=== PATIENT | female | born 1970 | race Asian ===

== ENCOUNTER 2021-04-03 09:19 | Outpatient (CLI) | payer OTHER, SELFPAY ==
[2021-04-03 10:00] LABS: Alanine Aminotransferase 17 U/L (4-35); Albumin Level 4.5 g/dL (3.5-5.1); Alkaline Phosphatase 46 U/L (38-126); Anion Gap 6 mmol/L (8-16); Aspartate Amino Transferase 35 U/L (14-36); Bilirubin,Total 0.5 mg/dL (0.2-1.3); Blood Urea Nitrogen 11 mg/dL (7-17); Calcium 9.8 mg/dL (8.4-10.2); Carbon Dioxide 30 mmol/L (22-30); Chloride 104 mmol/L (98-107); Cholesterol 243 mg/dL (0-200); Estimated Glomerular Filt Rate > 60; Glucose 86 mg/dL (65-110); HDL Direct 74 mg/dL; Potassium 4.1 mmol/L (3.4-5.0); Sodium 140 mmol/L (137-145); Triglycerides 68 mg/dL (<150)
[2021-04-03 10:01] LABS: Basophils Percent Auto 0.7 % (0.2-1.2); Eosinophils Absolute Auto 0.3 K/mm3 (0-0.3); Eosinophils Percent Auto 7.2 % (0-4.4); Hematocrit 41.5 % (37.0-47.0); Hemoglobin 13.7 g/dL (12.0-15.0); Immature Granulocyte Absolute 0.01 K/mm3 (0.00-0.031); Immature Granulocyte Percent A 0.2 % (0-0.5); Lymphocytes Absolute Auto 1.59 K/mm3 (0.9-3.2); Lymphocytes Percent Auto 37.1 % (18.3-44.2); Mean Corpuscular Hemoglobin 29.8 pg (26-34); Mean Corpuscular Volume 90.4 fl (80-100); Mean Platelet Volume 9.3 fl (7.4-10.4); Monocytes Absolute Auto 0.4 K/mm3 (0.1-0.6); Monocytes Percent Auto 8.6 % (2.6-8.5); Neutrophils Percent Auto 46.2 % (45.5-73.1); Platelet Count Result 250 k/mm3 (150-375); Red Blood Count 4.59 M/mm3 (4.2-5.4); Red Cell Distribution Width 13.9 % (11.5-14.5); White Blood Count 4.3 K/mm3 (4.5-10.0)
[2021-04-03 10:12] LABS: LDL Cholesterol Direct 127 mg/dL
== END 2021-04-03 09:20 | disposition home or self-care (01) ==
PROVIDERS: PCP Family Medicine; Visit Provider Nurse Practitioner
DX: E78.5 Hyperlipidemia, unspecified (principal)
CPT/HCPCS: 36415; 80053; 80061; 85025

== ENCOUNTER 2021-04-24 08:38 | Outpatient (CLI) | payer OTHER, SELFPAY ==
[2021-04-28 17:29] LABS: HIV DNA PCR (Qual) Not Detected (Not Detected)
== END 2021-04-24 08:39 | disposition home or self-care (01) ==
LOC: ANHLAB 08:39
PROVIDERS: PCP Family Medicine; Visit Provider Nurse Practitioner
DX: Z11.3 Encounter for screening for infections with a predominantly sexual mode of transmission (principal); Z12.4 Encounter for screening for malignant neoplasm of cervix
CPT/HCPCS: 36415; 87535

== ENCOUNTER 2021-06-18 08:55 | Outpatient (CLI) | payer OTHER, SELFPAY ==
--- NOTE | ~2021-06-18 | MM_ITS ---
EXAMINATION: MM screening [facility] BI w [place] HISTORY: Screening TECHNIQUE: Craniocaudal and mediolateral oblique 3-D tomosynthesis images were obtained and synthetic 2-D images were generated. CAD analysis was submitted and interpreted. COMPARISON: Comparison to multiple prior studies sequentially, with oldest reviewed study dated 11/15. BREAST PARENCHYMAL COMPOSITION: Breast composed of scattered areas of fibroglandular density FINDINGS: There is a new cluster of calcifications in the lower outer quadrant of the left breast, mi ddle third. The right breast is stable without evidence for malignancy. IMPRESSION: 1. New cluster of indeterminate left breast calcifications, lower outer quadrant. 2. Magnification views are recommended. BI-RADS Category 0: Incomplete: Needs additional imaging evaluation. Reviewed, dictated and finalized at location A. ICATOR IMPRESSION: 1. New cluster of indeterminate left breast calcifications, lower outer quadran t. 2. Magnification views are recommended. BI-RADS Category 0: Incomplete: Needs additional imaging evaluation.
== END 2021-06-18 08:56 | disposition home or self-care (01) ==
PROVIDERS: PCP Family Medicine; Visit Provider Obstetrics & Gynecology
DX: Z12.31 Encounter for screening mammogram for malignant neoplasm of breast (principal); R92.8 Other abnormal and inconclusive findings on diagnostic imaging of breast
CPT/HCPCS: 77063; 77067

== ENCOUNTER 2021-06-19 10:00 | Outpatient (RCR) | payer OTHER, SELFPAY ==
--- NOTE | 2021-05-22 13:53 | PTOPEVAL ---
PHYSICAL THERAPY EVALUATION Thank you for referring Angelina Iglesias to [facility].? Angelina was evaluated for the dx of right elbow epicondylitis. The patient is scheduled to be seen for therapy?2 x/week for 4 weeks. Please review, sign, date and return this plan of care [place]. I agree with and certify that the following plan of care is medically necessary. Referring Physician Date Attending Provider: Saray Garcia NP *PT Outpatient Evaluation Start: 05/22/21 12:35 Freq: Status: Active Protocol: Document 05/22/21 12:35 [facility] (Rec: 05/22/21 13:28 MLV [id number]) Therapy Assessment Status Assessment Status Assessment Status Evaluation Evaluation Information Problem Diagnosis right elbow tendonitis Onset 2019 Cause overuse Additional Evaluation Detail The patient reports starting playing tennis this last summer and then began having pain at her forearm and difficulty gripping/lifting. The pt is right hand dominant. The patient works, using a computer all day, and plays games online with the computer. The patient swims 1-2 x a week regularly. The patient was given steroids that helped while on it but came back when it is done. 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
--- NOTE | 2021-06-19 10:23 | PTOPEVAL ---
PHYSICAL THERAPY DISCHARGE NOTE Thank you for referring Angelina Iglesais to [facility].? Please review, sign, date and return this plan of care [place]. I agree with and certify that the following plan of care is medically necessary. Referring Physician Date Attending Provider: Saray Garcia, CUTTING AND SPLICING SUPERVISOR Discharge Diagnosis right elbow tendonitis Onset 2019 Cause overuse Subjective Information feeling like she is doing Query Text:As Reported By Patient/ better and that she can use Family her right arm better. The pain is significantly reduced. Pain Assessment Timing of Pain Assessment Timing of Pain Assessment Pre-Treatment Self Report Self Report Pain Level 0 Pain Score Pain Score 0: Self Report Upper Extremity Range of Motion General Upper Extremity Range of Motion Gross Upper Extremity Range of Motion right wrist active: flexion ( Comments with elbow flexed) 88', extension 68', flexion with elbow extended 69'. Fingers/ elbow motions symmetrical and WNL's Upper Extremity Muscle Strength Testing Elbow/Forearm Bilateral Elbow Flexion Strength 5 Normal Elbow Extension Strength 5 Normal Wrist Strength Bilateral Wrist Flexion Strength 5 Normal Wrist Extension Strength 5 Normal Finger Strength Bilateral Finger Strength Comments 3 finger pinch left = 6lbs, right 7.5lbs gross inspector clip on sunglasses level 1: right 50 lbs gross inspector clip on sunglasses level 3: right 51 lbs with some pain Palpation Assessment Palpation Palpation no tenderness noted through wrist extensors General Exercises Side Right Exercise Description - bent over tricep kickback Query Text:Record Sets, Reps, with #4 dumbbell [id number] cues Resistance, and Position for mechanics and stabilization - standing shoulder flexion to 90degrees with #4 [id number] cues for posture - standing shoulder scaption # 4 [id number] - standing full bicep curl with #4 [id number], hammer curl with #4 [id number] - UE bike for push-pull x2min Rehab Teaching Rehab Teaching Teaching Topic Rehab Teaching Topic Components Bod
== END 2021-06-19 16:46 | disposition home or self-care (01) ==
LOC: ANHPT 10:00
PROVIDERS: PCP Family Medicine; Visit Provider Nurse Practitioner
DX: M25.521 Pain in right elbow (principal)
CPT/HCPCS: 97035; 97110; 97140; 97162

== ENCOUNTER 2021-06-21 10:22 | Outpatient (CLI) | payer OTHER, SELFPAY ==
--- NOTE | ~2021-06-21 | MM_ITS ---
EXAMINATION: MM diagnostic mammo unilat LT HISTORY: Follow-up left breast calcifications TECHNIQUE: Additional 3-D tomosynthesis images of the left breast were performed and synthetic 2-D im ages were generated. CAD analysis was submitted and interpreted. COMPARISON: 06/18/2021 BREAST PARENCHYMAL COMPOSITION: Breast composed of scattered areas of fibroglandular density. FINDINGS: There are punctate indeterminate left breast calcifications which are likely benign. There are no suspicious masses or architectural distortion. IMPRESSION: 1. Probable benign calcifications lower outer quadrant of the left breast anteriorly. 2. Recommend 6 month follow-up diagnostic left mammogram BI-RADS category 3, probably benign findings. Reviewed, dictated and finalized at location A. ROOM ATTENDANT IMPRESSION: 1. Probable benign calcifications lower outer quadrant of the left breast anter iorly. 2. Recommend 6 month follow-up diagnostic left mammogram BI-RADS category 3, probably benign findings.
== END 2021-06-21 10:23 | disposition home or self-care (01) ==
LOC: ANHIMG 10:22
PROVIDERS: PCP Family Medicine; Visit Provider Nurse Practitioner Family
DX: R92.8 Other abnormal and inconclusive findings on diagnostic imaging of breast (principal); R92.1 Mammographic calcification found on diagnostic imaging of breast
CPT/HCPCS: 77065

== ENCOUNTER 2022-01-24 11:54 | Outpatient (CLI) | payer OTHER, SELFPAY ==
--- NOTE | ~2022-01-24 | MM_ITS ---
EXAMINATION: MM diagnostic adis LT w [place] HISTORY: Six-month follow-up for probable benign calcifications lower outer quadrant of left breast a nteriorly TECHNIQUE: ML, MLO and CC 3-D tomosynthesis images of the left breast were performed and synthetic 2- D images were generated. Magnification views of left breast in ML, MLO and CC projections CAD analysi s was submitted and interpreted. COMPARISON: 06/21/2021 diagnostic left mammogram 06/18/2021 bilateral screening mammogram BREAST PARENCHYMAL COMPOSITION: The breasts are heterogeneously dense, which may obscure small masses . FINDINGS: Punctate subtle microcalcifications are noted anteriorly in the lower outer left breast. No linear or branching suspicious microcalcifications are noted. No suspicious osseous mass or architec tural distortion, skin thickening or retraction is evident. The heterogeneously dense stroma however may obscure masses. IMPRESSION: 1. Subtle microcalcifications anterior lower outer left breast and heterogeneously dense stroma 2. Left breast ultrasound examination is recommended BI-RADS Category 0: Incomplete: Needs additional imaging evaluation. Reviewed, dictated and finalized at location A. IMPRESSION: 1. Subtle microcalcifications anterior lower outer left breast and heterogeneou sly dense stroma 2. Left breast ultrasound examination is recommended BI-RADS Category 0: Incomplete: Needs additional imaging evaluation.
== END 2022-01-24 11:55 | disposition home or self-care (01) ==
LOC: ANHIMG 11:55
PROVIDERS: PCP Nurse Practitioner; Visit Provider Nurse Practitioner Family
DX: R92.8 Other abnormal and inconclusive findings on diagnostic imaging of breast (principal); R92.0 Mammographic microcalcification found on diagnostic imaging of breast
CPT/HCPCS: 77061; 77065; G0279

== ENCOUNTER → 2022-01-29 13:05 | Outpatient (CLI) | payer OTHER, SELFPAY ==
--- NOTE | ~2022-01-29 | US_ITS ---
US breast LT limited 01/29/2022 13:18 Indication: Left breast calcifications with dense tissue seen on prior examination. Procedure: High-resolution Limited ultrasound of the left breast Comparison: Mammogram dated 01/24/2022 Findings: Normal heterogeneous echotexture without focal solid or cystic mass. Impression: 1: No sonographic evidence for malignancy in the left breast. Left breast calcifications in the lower outer quadrant of the left breast are likely benign. BI-RADS CATEGORY 3-PROBABLY BENIGN FINDING RECOMMENDATION: Six-month follow-up diagnostic left mammogram recommended. Reviewed, dictated and finalized at location A. Impression: 1: No sonographic evidence for malignancy in the left breast. Left breast calci fications in the lower outer quadrant of the left breast are likely benign. BI-RADS CATEGORY 3-PROBABLY BENIGN FINDING RECOMMENDATION: Six-month follow-up diagnostic left mammogram recommended.
== END ==
PROVIDERS: PCP Nurse Practitioner; Visit Provider Nurse Practitioner
DX: R92.1 Mammographic calcification found on diagnostic imaging of breast (principal)
CPT/HCPCS: 76642

== ENCOUNTER 2022-10-15 13:04 | Outpatient (CLI) | payer OTHER, SELFPAY ==
--- NOTE | ~2022-10-15 | MM_ITS ---
EXAMINATION: MM diagnostic adis BI w [place] HISTORY: Six-month follow-up for probably benign left breast calcifications. TECHNIQUE: Craniocaudal, mediolateral, and mediolateral oblique 3-D tomosynthesis images of the breas ts were performed and synthetic 2-D images were generated. Magnification views of the left breast are also obtained. CAD analysis was submitted and interpreted. COMPARISON: 01/24/2022, 06/21/2021, 06/18/2021, 02/12/2018 BREAST PARENCHYMAL COMPOSITION: The breasts are heterogeneously dense, which may obscure small masses . FINDINGS: No suspicious mass, calcification, or architectural distortion are identified in either rajeev ast to suggest malignancy. There has been no suspicious interval change. Previously described left b reast calcifications are no longer evident. IMPRESSION: 1. No mammographic evidence of malignancy. 2. Recommend routine screening mammography in one year. BI-RADS Category 1: Negative Reviewed, dictated and finalized at location A.
== END 2022-10-15 13:05 | disposition home or self-care (01) ==
LOC: ANHIMG 13:05
PROVIDERS: PCP Nurse Practitioner; Visit Provider Nurse Practitioner
DX: R92.8 Other abnormal and inconclusive findings on diagnostic imaging of breast (principal)
CPT/HCPCS: 77062; 77066; G0279

== ENCOUNTER 2022-12-30 00:09 | Day surgery (SDC) | payer OTHER, SELFPAY ==
[2022-12-19 13:56] VITALS: BMI 22.0
[2022-12-30 08:27] VITALS: BP 100/65; PULSE 60; RESP 20; TEMP 36.6; O2SAT 100
[2022-12-30] MEDS: LACTATED RINGERS 1,000 ML 150 ML IV CONT (08:39)
--- NOTE | 2022-12-30 09:12 | WPDANESEPPF ---
Anes - Initial Pre Proc Eval Procedure: Operation Date: 12/30/22 09:45 Proposed Procedures p Screening Colonoscopy - Misael Bajwa MD Date/Time: 12/30/22 09:12 Surgeon: Misael Bajwa MD Pre Op Diagnosis: neoplasm screening Patient Data Age: 52 Gender: F Height: 1.65 m Weight: 57 kg Last Vital Signs Temp 98 F 12/30/22 08:27 Pulse 60 12/30/22 08:27 Resp 20 12/30/22 08:27 BP 100/65 12/30/22 08:27 Pulse Ox 100 12/30/22 08:27 O2 Del Method Room Air 12/30/22 08:27 Allergies Allergy/AdvReac Type Severity Reaction Status Date / Time No Known Allergies Allergy Verified 12/30/22 08:25 Home Medications Medication Instructions Recorded Confirmed Type ubrogepant 50 mg tablet (Ubrelvy) 50 mg PO ONCE 09/10/20 12/19/22 History fluticasone propionate 50 1 spray intranasal DAILY #16 grams 07/18/22 12/19/22 Rx mcg/actuation nasal spray,suspension (Flonase Allergy Relief) acyclovir 400 mg tablet 400 mg PO TID PRN Cold Sores 12/18/22 12/19/22 History omeprazole 40 mg capsule,delayed 40 mg PO DAILY #90 caps 12/18/22 12/19/22 Rx release sucralfate 1 gram tablet 1 g PO TID #15 tabs 12/18/22 12/19/22 Rx Patient hx anesthesia problems: none Family hx anesthesia problems: none Results Review: All pre-operative results and documents have been reviewed as part of the pre-operative evaluation. [facility] Past Medical History Medical History HSV-1 infection Hyperlipidemia Migraine, unspecified, not intractable, without status migrainosus Family History Family History Father Family history of glaucoma Mother Family history of glaucoma Sibling Family history of malignant neoplasm of breast in first degree relative Social History Social History Years smoked: 10 Smoking status: Current every day smoker Smoking end date: 06/08/97 Alcohol intake: current Substance use: never Substance use type: does not use Lack of Transportation: No Lack of Food: Never True Current Housing: I Have Housing Concerned About Future Housing: No Difficulty Paying Gas/Electric Bills: No Difficulty Paying for Meds: No Currently Unemployed: No Education: Grade School Difficulty w/ Childcare or Family Care: No Gender identity (if verbalized by the patient): Female Spiritual care concerns: No Anes - Eval Final PreProcedure Day of Procedure 12/30/22 09:12 Patient weight: normal Heart: regular rate and rhythm Lungs: clear to auscultation Airway: Mallampati scale class II Neurological: alert and oriented Last oral intake: >/= 8 hours ASA classification: II Emergent: no Anesthetic plan: proceed Anesthesia type and monitoring: general GIVS and standard monitoring Results Review: All pre-operative results and documents have been reviewed as part of the pre-operative evaluation. Informed Consent: The patient's anesthetic plan and its attendant risks and benefits were discussed with the patient/family/POA. Questions were solicited and answers provided to the satisfaction of the patient/family/POA.
--- NOTE | 2022-12-30 09:28 | PM.HPGS ---
History of Present Illness History of Present Illness Consent: Risks, benefits, and alternatives have been discussed and questions answered. Patient agrees to proceed with procedure. Chief complaint: neoplasm screening Narrative: Angelina Iglesias is a 52 year old female here for first screening colonoscopy Review of Systems Constitutional: Constitutional: Denies headache(s) and Denies weakness Eyes: Eyes: Denies blurry vision ENT: Reports Normal hearing present, Denies headache(s) and Denies neck pain Cardiovascular: Cardiovascular: Denies chest pain and Denies dyspnea Respiratory: Respiratory: Denies dyspnea Gastrointestinal: Gastrointestinal: Reports no additional gastrointestinal complaints Genitourinary: Genitourinary: Denies dysuria Musculoskeletal: Musculoskeletal: Denies neck pain Integumentary/Breasts: Skin/Breast: Denies dry skin Neurologic: Reports Normal hearing present, Denies headache(s) and Denies weakness Psychiatric: Psychiatric: Denies anxiety Endocrine: Endocrine: Denies change in body appearance Hematologic/Lymphatic: Hematologic/Lymphatic: Denies easy bleeding Allergic/Immunologic: Allergic/Immunologic: Denies urticaria PMFSH Past Medical History Medical History (Updated 12/30/22 @ 09:29 by Misael Bajwa MD) Colon cancer screening HSV-1 infection Hyperlipidemia Migraine, unspecified, not intractable, without status migrainosus Family History Family History Father Family history of glaucoma Mother Family history of glaucoma Sibling Family history of malignant neoplasm of breast in first degree relative Social History Social History Years smoked: 10 Smoking status: Current every day smoker Smoking end date: 06/08/97 Alcohol intake: current Substance use: never Substance use type: does not use Lack of Transportation: No Lack of Food: Never True Current Housing: I Have Housing Concerned About Future Housing: No Difficulty Paying Gas/Electric Bills: No Difficulty Paying for Meds: No Currently Unemployed: No Education: Grade School Difficulty w/ Childcare or Family Care: No Gender identity (if verbalized by the patient): Female Spiritual care concerns: No Meds Home Medications and Allergies Home Medications Medication Instructions Recorded Confirmed Type ubrogepant 50 mg tablet (Ubrelvy) 50 mg PO ONCE 09/10/20 12/19/22 History fluticasone propionate 50 1 spray intranasal DAILY #16 grams 07/18/22 12/19/22 Rx mcg/actuation nasal spray,suspension (Flonase Allergy Relief) acyclovir 400 mg tablet 400 mg PO TID PRN Cold Sores 12/18/22 12/19/22 History omeprazole 40 mg capsule,delayed 40 mg PO DAILY #90 caps 12/18/22 12/19/22 Rx release sucralfate 1 gram tablet 1 g PO TID #15 tabs 12/18/22 12/19/22 Rx Allergies Allergy/AdvReac Type Severity Reaction Status Date / Time No Known Allergies Allergy Verified 12/30/22 08:25 Vital Signs Vital Signs - 24 hr 12/30/22 08:27 Temperature 98 F Pulse Rate 60 Respiratory Rate 20 Blood Pressure 100/65 Pulse Oximetry 100 Oxygen Delivery Room Air Exam Const: General: comfortable and no acute distress HENMT: Face/Nose/Sinus: Normal nares present Eyes: General: appearance normal, both eyes and all related structures Neck: Neck: no JVD Resp: Auscultation: clear to auscultation bilaterally Cardio: Rate: regular rate Rhythm: regular rhythm GI: Inspection: non-distended GI Palp: Yes Soft to palpation Skin: General skin exam: normal color Neuro: General: gait normal Speech: normal speech Extrem: General: normal to inspection Psych: Mental Status: mental status grossly normal Assessment and Plan Assessment and plan (1) Colon cancer screening: Code(s): Z12.11 - Encounter for screening for malignant neoplasm of
[2022-12-30 09:54] VITALS: BP 86/33; PULSE 57; RESP 16; O2SAT 99
[2022-12-30 10:07] VITALS: BP 82/54; PULSE 52; RESP 16; O2SAT 99
[2022-12-30 10:15] VITALS: BP 84/57; PULSE 50; RESP 14; O2SAT 99
== END 2022-12-30 10:23 | disposition home or self-care (01) ==
PROVIDERS: PCP Family Medicine; Visit Provider Internal Medicine Gastroenterology
PROC: 0DJD8ZZ Inspection of Lower Intestinal Tract, Via Natural or Artificial Opening Endoscopic (ICD-10-PCS; CPT 45378; principal; 2022-12-30 09:45)
DX: Z12.11 Encounter for screening for malignant neoplasm of colon (principal); D12.0 Benign neoplasm of cecum; K63.5 Polyp of colon; K64.8 Other hemorrhoids; B00.9 Herpesviral infection, unspecified; F17.200 Nicotine dependence, unspecified, uncomplicated
CPT/HCPCS: 45385; 88305; J2704; J7120

== ENCOUNTER 2024-02-23 08:04 | Outpatient (CLI) | payer OTHER, SELFPAY ==
[2024-02-23 13:54] LABS: Basophils Percent Auto 0.8 % (0.2-1.2); Eosinophils Absolute Auto 0.2 K/mm3 (0-0.3); Hematocrit 42.7 % (37.0-47.0); Hemoglobin 13.1 g/dL (12.0-15.0); Immature Granulocyte Absolute 0.01 K/mm3 (0.00-0.031); Immature Granulocyte Percent A 0.3 % (0-0.5); Lymphocytes Absolute Auto 1.55 K/mm3 (0.9-3.2); Lymphocytes Percent Auto 40.9 % (18.3-44.2); Mean Corpuscular HGB Conc 30.7 g/dl (32-36); Mean Corpuscular Hemoglobin 29.2 pg (26-34); Mean Corpuscular Volume 95.3 fl (80-100); Mean Platelet Volume 9.5 fl (7.4-10.4); Monocytes Absolute Auto 0.3 K/mm3 (0.1-0.6); Monocytes Percent Auto 8.7 % (2.6-8.5); Neutrophils Absolute Auto 1.7 K/mm3 (1.3-6.7); Neutrophils Percent Auto 44.3 % (45.5-73.1); Platelet Count Result 238 k/mm3 (150-375); Red Blood Count 4.48 M/mm3 (4.2-5.4); Red Cell Distribution Width 13.3 % (11.5-14.5); White Blood Count 3.8 K/mm3 (4.5-10.0)
[2024-02-23 14:22] LABS: Alanine Aminotransferase 13 U/L (6-35); Albumin Level 4.4 g/dL (3.5-5.1); Alkaline Phosphatase 63 U/L (38-126); Anion Gap 7 mmol/L (4-12); Aspartate Amino Transferase 48 U/L (14-36); Bilirubin,Total 0.5 mg/dL (0.2-1.3); Blood Urea Nitrogen 9 mg/dL (7-17); Calcium 9.4 mg/dL (8.4-10.2); Carbon Dioxide 31 mmol/L (22-30); Chloride 100 mmol/L (98-107); Cholesterol 211 mg/dL (0-200); Estimated Glomerular Filt Rate > 60; Glucose 64 mg/dL (65-110); HDL Direct 78 mg/dL; Potassium 3.8 mmol/L (3.4-5.0); Sodium 138 mmol/L (137-145); Triglycerides 66 mg/dL (<150)
[2024-02-23 14:33] LABS: LDL Cholesterol Direct 101 mg/dL
[2024-02-23 15:00] LABS: Vitamin D 25 Hydroxy 47.5 ng/mL
== END 2024-02-23 08:05 | disposition home or self-care (01) ==
LOC: ANHGOSHLAB 08:05
PROVIDERS: PCP Family Medicine; Visit Provider Family Medicine
DX: Z00.00 Encounter for general adult medical examination without abnormal findings (principal); Z13.29 Encounter for screening for other suspected endocrine disorder; E78.5 Hyperlipidemia, unspecified; E55.9 Vitamin D deficiency, unspecified; E53.8 Deficiency of other specified B group vitamins; Z79.899 Other long term (current) drug therapy
CPT/HCPCS: 36415; 80053; 80061; 82306; 82607; 84443; 85025

== ENCOUNTER 2024-07-01 11:00 | Outpatient (RCR) | payer OTHER, SELFPAY ==
--- NOTE | 2024-06-09 16:44 | OPREHPOC ---
Outpatient Therapy Plan of Care This is a Multidisciplinary Plan of Care that may contain components documented by all disciplines (PT, OT, and ST.) PT Problem 1 PT Problem #1 Knowledge Deficit PT Goal 1 Goal / Goal Update Gregory with HEP Target Visit 4 PT Goal 2 Goal / Goal Update Report no pain greater than 2/10 for 2 consecutive weeks Target Visit 6 PT Problem 2 PT Problem #2 Impaired Range of Motion PT Goal 1 Goal / Goal Update Demonstrate no soft tissue restriction of R piriformis Target Visit 6 PT Problem 3 PT Problem #3 Impaired Strength PT Goal 1 Goal / Goal Update 1. Improve harlan hip abduction strength to 4+/5 to improve lateral stability of pelvis with ADLs and mobility. 2. Improve lower abdominal strength to 4/5 to improve pelvic stability with ADLs and transfers Target Visit 6
--- NOTE | 2024-06-09 16:44 | PTOPEVAL1 ---
Assessment and note entered by Layton Llamas, PT Evaluation Information Assessment Status Evaluation Diagnosis Sacrococcygeal Disorder ICD-10 Condition Codes (PT) Pain in low back M54.50 Onset 05/16/24 Subjective Information Reports that she has history of some disc issues over the years. Most of her pain today in in her right hip and posterior buttock. Reports that sleeping she has pain and her pain is usually worse in the morning She has been sleeping on her left side. She is also having trouble if sitting too long or lofting from the floor. She likes to swim and does that for exercise. She walks 1 mile a day. Brenda has been helping. Reported Pain Level Pain Score 1: Self Report Assessment PT Clinical Summary Patient presents with signs and symptoms of SI pain and possible lumbar radiculopathy. Patient has hip weakness and difficulty with disassociation of mobility from lumbar spine. Patient will benefit form skilled therapy to address lumbar stabilization and hip mobility to reduce lower spinal pain and improve functional posturing. Plan of Care Interventions Gait Training,Manual Therapy,Therapeutic Activities,Therapeutic Exercise PT Services Indicated Yes Treatment Frequency and 1-2x/week for 6 visits Duration These treatments will address the objective and functional deficits as defined above. The patient will be advanced safely and appropriately in order for the patient to progress towards his/her prior level of function. Additional exercises will be introduced and as well as a comprehensive home exercise program upon discharge, if needed, ?to ensure carryover of functional gains achieved in the clinic. This treatment plan has been reviewed and agreement upon by the patient.
--- NOTE | 2024-07-01 11:55 | PTOPDC ---
Assessment and note entered by Frances Raygoza, PT Assessment Status Discharge Diagnosis Sacrococcygeal Disorder ICD-10 Condition Codes (PT) Pain in low back M54.50 Onset 05/16/24 Subjective Information am about 90% improved since coming for therapy; have been doing exercises for fitness about 2-3 x/ wk with swimming, exercise machines; do my home stretches every morning; may have to get a new mattress- sleeping makes hip sore; at work, have stand up desk and try to move often, sometimes is 2 hours before move around; feel like OK to go on her own with the exercises; Reported Pain Level Pain Score Self Report Additional Pain Score Comments R hip- lateral and posterior, sometimes in front pain range in the past week 0-3/10 increase pain: sit 1 hour; when wake up in the morning; decrease pain: stretching, moving and changing positions, sauna does not take any pain meds Assessment PT Clinical Summary Angelina has received 6 PT sessions. Compared to the initial evaluation: pain rating from 0-8/10 to 0-3/10; self assessment Oswestry rating from 16 to 14% limitation; sitting and standing tolerances are about 1 hour; increase flexibility of R piriformis and now without pain; slight tightness over L anterior hip/quad with prone knee flexion, compared to R; slight decrease strength of R hip with single leg standing and mat exercises- pt reports R more tired with the exercises and few less reps; increase strength of trunk and hips; education completed for HEP and posture, body mechanics and pain management techniques. The goals were achieved, except pain rating at worst. Discharge PT. She is to continue with the HEP and posture awareness/correction. Plan of Care PT Services Indicated No
== END 2024-07-01 12:29 | disposition home or self-care (01) ==
LOC: ANHPT 11:00
PROVIDERS: PCP Family Medicine; Visit Provider Family Medicine
DX: M53.3 Sacrococcygeal disorders, not elsewhere classified (principal)
CPT/HCPCS: 97110; 97140; 97161; 97530

== ENCOUNTER 2024-10-14 14:30 | Outpatient (RCR) | payer OTHER, SELFPAY ==
--- NOTE | 2024-09-26 16:15 | OPREHPOC ---
Outpatient Therapy Plan of Care This is a Multidisciplinary Plan of Care that may contain components documented by all disciplines (PT, OT, and ST.) PT Problem 1 PT Problem #1 Knowledge Deficit PT Goal 1 Goal / Goal Update *independent with HEP Target Visit 6 PT Problem 2 PT Problem #2 Pain PT Goal 1 Goal / Goal Update * decrease pain report at worst to 3/10 Target Visit 6 PT Goal 2 Goal / Goal Update * pt report with sleeping, awaken 1x/night due to pain Target Visit 6 PT Problem 3 PT Problem #3 Impaired Strength PT Goal 1 Goal / Goal Update increase strength of trunk and hips, to gross 4+/5 , to improve stability to spine Target Visit 6 PT Goal 2 Goal / Goal Update *single leg standing R and L x 20 seconds with good stability Target Visit 6 PT Problem 4 PT Problem #4 Impaired Flexibility PT Goal 1 Goal / Goal Update * pt perform with out an increase in pain: 1* supine R hip ER 2* prone knee flexion R Target Visit 6
--- NOTE | 2024-09-26 16:15 | PTOPEVAL1 ---
Assessment and note entered by Frances Raygoza, PT Evaluation Information Assessment Status Evaluation ICD-10 Condition Codes (PT) Pain in low back M54.50 Onset August 2024 Subjective Information gradual increase in pain after flying to [place] and assisting with her new twin grand children; lifting and sitting on plane increase pain; pain is getting a little better from when it started previous PT here for back; have been doing the back exercises at home and was better; no recent x ray or imaging done activity: teacher, do in line and in class teaching; go to the fitness center to swim and use sauna- have not done in the past few weeks Reported Pain Level Pain Score Self Report Additional Pain Score Comments pain range in the past week: 0-5/10; dull pain in back; R lumbar-sacral and into lateral hip; intermittent numbness into R leg, to mid calf increase pain:sitting 45-60 min/ stand 30-60 min decrease pain: change positions, naproxen, walking , swimming with sleeping awaken 2-3 x/night due to pain have not used heat or ice lately-- reinforced to use 10-15 min PRN; Assessment PT Clinical Summary Angelina has the diagnosis of low back pain. Intermittent pain into R LE to mid calf. Self assessment Oswestry rating of 42% limitation in activity level. She reports increase in back pain after traveling by plane to [place], sleeping on the floor and assisting with care of her twin grand babies. Sleep is disrupted due to pain. She has an active lifestyle and does daily back exercises. With the evaluation: pain is increased with trunk extension, supine R hip ER & figure 4 piriformis and prone knee flexion stretches; supine/prone transfer increases pain; slight decrease strength of trunk and hips. Skilled PT services are indicated for modalities to decrease pain; therapeutic exercises to increase strength and flexibility of trunk and hips, with education for HEP and body mechanics. Plan of Care Interventions Electrical Stimulation,Hot Pack/Cold Pack,Manual Therapy,Mechanical Traction,Neuro Re-education, Patient/Caregiver Education,Therapeutic Activities ,Therapeutic Exercise,Ultrasound,Other Other Interventions taping PT Services Indicated Yes Treatment Frequency and 1-2 x/wk for 6 visits Duration These treatments will address the objective and functional deficits as defined above. The patient will be advanced safely and appropriately in order for the patient to progress towards his/her prior level of function. Additional exercises will be introduced and as well as a comprehensive home exercise program upon discharge, if needed, ?to ensure carryover of functional gains achieved in the clinic. This treatment plan has been reviewed and agreement upon by the patient.
--- NOTE | 2024-10-14 15:26 | OPREHPOC ---
Outpatient Therapy Plan of Care This is a Multidisciplinary Plan of Care that may contain components documented by all disciplines (PT, OT, and ST.) PT Problem 1 PT Problem #1 Knowledge Deficit PT Goal 1 Goal / Goal Update *independent with HEP 10-14-24 d/c goal met Target Visit 6 Progress Met PT Problem 2 PT Problem #2 Pain PT Goal 1 Goal / Goal Update * decrease pain report at worst to 3/10 10-14-24 d/c goal not met, 7/10 at worst Target Visit 6 Progress Not Met PT Goal 2 Goal / Goal Update * pt report with sleeping, awaken 1x/night due to pain 10-14-24 d/c goal not met, awaken 2-3 x Target Visit 6 Progress Not Met PT Problem 3 PT Problem #3 Impaired Strength PT Goal 1 Goal / Goal Update increase strength of trunk and hips, to gross 4+/5 , to improve stability to spine 10-14-24 d/c goal met Target Visit 6 Progress Met PT Goal 2 Goal / Goal Update *single leg standing R and L x 20 seconds with good stability 10-14-24 d/c goal met Target Visit 6 Progress Met PT Problem 4 PT Problem #4 Impaired Flexibility PT Goal 1 Goal / Goal Update * pt perform with out an increase in pain: 1* supine R hip ER 2* prone knee flexion R 10-14-24 d/c goal 2 met Target Visit 6 Progress Partially Met
--- NOTE | 2024-10-14 15:26 | PTOPDC ---
Assessment and note entered by Frances Raygoza, PT Assessment Status Discharge ICD-10 Condition Codes (PT) Pain in low back M54.50 Onset August 2024 Subjective Information feel like I am 80% of normal; will be leaving next week for [place] for the summer; have been doing the exercises and trying to be careful with my back; Reported Pain Level Pain Score Self Report Pain Score Self Report Additional Pain Score Comments pain range in the past week 1-7/10; R sacral area; R LE: lateral and anterior hip, to lateral knee and sometimes into mid calf increase pain: staying in the same position too long; when first wake up in the morning; decrease pain; change positions with sleeping awaken due to discomfort about 2-3 x /night Assessment PT Clinical Summary Angelina has received 6 PT sessions. Compared to the initial evaluation; pain from 0-5/10 to 1-7/10; same with radicular pain intermittent to mid calf and reported sleeping awaken 2-3 x/night due to pain and have to reposition; self assessment scale from 42 to 34% limitation in activity level; increase strength of trunk and hips; supine R hip ER increases her pain over R anterior hip; education completed for HEP and body mechanics. The goals were partially met. Discharge PT services. She is to continue with her HEP and monitoring her back position/body mechanics. Plan of Care PT Services Indicated No
== END 2024-10-17 09:24 | disposition home or self-care (01) ==
LOC: ANHPT 14:30
PROVIDERS: PCP Family Medicine; Visit Provider Family Medicine
DX: M54.50 Low back pain, unspecified (principal)
CPT/HCPCS: 97110; 97140; 97161; 97530

== ENCOUNTER 2025-02-23 09:43 | Outpatient (CLI) | payer OTHER, SELFPAY ==
[2025-02-23 10:43] LABS: Hematocrit 40.6 % (37.0-47.0); Hemoglobin 13.0 g/dL (12.0-15.0); Immature Granulocyte Percent A 0.2 % (0-0.5); Lymphocytes Absolute Auto 1.23 K/mm3 (0.9-3.2); Mean Corpuscular HGB Conc 32.0 g/dl (32-36); Mean Corpuscular Hemoglobin 30.0 pg (26-34); Mean Corpuscular Volume 93.5 fl (80-100); Nucleated Red Blood Cells Absolute Auto 0.000 K/mm3 (0.0-0.012); Nucleated Red Blood Cells Perc 0.0 % (0.0-0.2); Platelet Count Result 222 k/mm3 (150-375); Red Blood Count 4.34 M/mm3 (4.2-5.4); White Blood Count 4.1 K/mm3 (4.5-10.0)
[2025-02-23 10:57] LABS: Hemoglobin A1C 5.5 % (<5.7)
[2025-02-23 11:02] LABS: Alanine Aminotransferase 17 U/L (6-35); Albumin Level 4.3 g/dL (3.5-5.1); Alkaline Phosphatase 73 U/L (38-126); Anion Gap 6 mmol/L (4-12); Aspartate Amino Transferase 45 U/L (14-36); Bilirubin,Total 0.3 mg/dL (0.2-1.3); Blood Urea Nitrogen 11 mg/dL (7-17); Calcium 9.4 mg/dL (8.4-10.2); Carbon Dioxide 28 mmol/L (22-30); Chloride 105 mmol/L (98-107); Cholesterol 218 mg/dL (0-200); Estimated Glomerular Filt Rate > 60; Glucose 82 mg/dL (65-110); HDL Direct 82 mg/dL; Potassium 3.9 mmol/L (3.4-5.0); Sodium 139 mmol/L (137-145); Total Protein 6.9 g/dL (6.3-8.2); Triglycerides 57 mg/dL (<150)
[2025-02-23 11:24] LABS: Thyroid Stimulating Hormone Reflex 1.970 uIU/mL (0.465-4.68)
[2025-02-23 11:55] LABS: Vitamin B12 730.0 pg/mL (239-931)
== END 2025-02-23 09:44 | disposition home or self-care (01) ==
LOC: ANHLAB 09:46
PROVIDERS: PCP Family Medicine; Visit Provider Family Medicine
DX: Z00.00 Encounter for general adult medical examination without abnormal findings (principal); I10 Essential (primary) hypertension; E53.8 Deficiency of other specified B group vitamins; R73.9 Hyperglycemia, unspecified; G43.009 Migraine without aura, not intractable, without status migrainosus; D55.9 Anemia due to enzyme disorder, unspecified; E55.9 Vitamin D deficiency, unspecified
CPT/HCPCS: 36415; 80053; 80061; 82306; 82607; 83036; 84443; 85025